=== PATIENT | female | born 1990 | race Two or more races ===

== ENCOUNTER 2023-04-02 19:33 | Emergency (ER) | payer OTHER, SELFPAY ==
[2023-04-02 19:43] VITALS: BP 119/70; PULSE 88; RESP 16; TEMP 37.2; O2SAT 99; BMI 31.4
--- NOTE | 2023-04-02 20:16 | MHC.EDTECH ---
Patient brought back to triage area,Labs,and a urine sample obtained and sent to lab.
[2023-04-02 20:27] LABS: Basophils Absolute Auto 0.1 X10*3/uL (0.0-0.2); Basophils Percent Auto 0.6 % (0-2); Eosinophils Absolute Auto 0.3 X10*3/uL (0.0-0.4); Eosinophils Percent Auto 2.4 % (0-4); Hematocrit 36.6 % (37.0-47.0); Hemoglobin 12.3 g/dl (12.0-16.0); Imm Gran Abs Auto 0.04 X10*3/uL (0.00-0.03); Imm Gran Pct Auto 0.3 % (0.0-0.4); Lymphocytes Absolute Auto 3.2 X10*3/uL (1.2-4.9); Lymphocytes Percent Auto 27.1 % (20-40); MANUAL DIFF FLAG NO; Mean Corpuscular HGB Conc 33.6 g/dl (31.0-35.0); Mean Corpuscular Hemoglobin 29.9 pg (27.0-33.0); Mean Corpuscular Volume 89.1 fL (80.0-98.0); Monocytes Absolute Auto 0.7 X10*3/uL (0.1-1.2); Monocytes Percent Auto 5.8 % (2-11); Neutrophils Absolute Auto 7.4 x10*3/uL (2.0-8.3); Neutrophils Percent Auto 63.8 % (45-73); Platelet Count 283 X10*3/uL (160-400); Red Blood Count 4.11 X10*6/uL (4.20-5.50); Red Cell Distribution Width 12.5 % (11.0-16.0); White Blood Count 11.6 X10*3/uL (4.8-10.8)
[2023-04-02 20:29] LABS: Appearance Urine Clear; Color Urine Yellow; Glucose Urine UA Negative (Negative); Leukocyte Esterase Urine Trace (Negative); Nitrite Urine Negative (Negative); PH 5.5 (5.0-9.0); Specific Gravity - Urine 1.025 (1.005-1.025); UMIC TRIGGER UACC YES; Urine Blood Negative (Negative); Urine Ketones Trace mg/dL (Negative); Urine Protein Negative (Neg-Trace)
[2023-04-02 20:30] VITALS: BP 121/80; PULSE 89; RESP 14; TEMP 36.8; O2SAT 99
[2023-04-02 20:31] LABS: Bacteria Urine 1+ (None Seen); Hyaline Casts Urine 0-2 /LPF (0-2); RBC Urine 0-2 /HPF (0-2); UPreg QC Valid YES; Urine Pregnancy NEGATIVE (NEGATIVE); WBC Urine 0-5 /HPF (0-5)
[2023-04-02 20:43] LABS: Alanine Aminotransferase 9 U/L (0-31); Albumin Level 4.4 g/dL (3.5-5.0); Alkaline Phosphatase 52 U/L (39-117); Anion Gap 14 (12-20); Aspartate Amino Transferase 12 U/L (5-31); Bilirubin Total 0.3 mg/dL (0.0-1.0); Blood Urea Nitrogen 11 mg/dL (9-16); Carbon Dioxide 25 mmol/L (22-29); Chloride 103 mmol/L (96-108); Creatinine Clr Calc Pharmacy 96.6; Estimated Glomerular Filt Rate > 60; Glucose Random 103 mg/dL (60-115); Potassium 3.9 mmol/L (3.3-5.1); Sodium 138 mmol/L (135-145); Total Protein 8.3 g/dL (6.5-8.0)
--- NOTE | 2023-04-02 21:31 | ED.FEMALEGU ---
HPI - Female Genitourinary General Chief complaint: Urogenital-Female Stated complaint: Flank pain/?UTI Time Seen by Provider: 04/02/23 21:05 History of Present Illness HPI Narrative: The patient presents complaining of ?kidney pain. ? She says that she has had this pain for a long time. She says that she was seen at [facility] Emergency room 3 weeks ago and was diagnosed with a UTI. She took a course of antibiotics but continues to have the same pain. On further questioning she admits to having the same pain for a long time. She says she has been diagnosed with fibromyalgia in the past. She is new in [place]. I believe she is from the [place]. She moved here last June. She has arranged for a primary care provider at [facility]. She says she has awaiting a referral to a molder punch. The patient says she has never had a kidney stone in her life. She also says that she has never had a kidney infection. Still why she calls her pain ?kidney pain she said that she thought that her pain is in the area of the kidneys. She denies any recent injury or exertional back pain injury. No loss of appetite. No fever, sweats, chills. She says that she is lost some weight over the last few months. When I asked if the patient takes anything for pain she said that she did not. However later she said that ibuprofen does not help for her pain. The patient has a regular sexual partner whom she has had for a long time. She does not seem to describe any significant dyspareunia. No vaginal discharge Related Data Allergies Allergy/AdvReac Type Severity Reaction Status Date / Time permethrin [PERMETHRIN] Allergy Severe generalized Verified 04/02/23 19:42 rash vancomycin [VANCOMYCIN] Allergy Intermediate itching Verified 04/02/23 19:42 Review of Systems Review of Systems: Yes all other systems are reviewed and are negative PMFSH Social History Social History Advance Directives: No Advance Directives Information Provided: No Physical Exam Vital Signs: Vital Signs: Last Vital Signs Temp 98.2 F 04/02/23 20:30 Pulse 89 04/02/23 20:30 Resp 14 04/02/23 20:30 BP 121/80 04/02/23 20:30 Pulse Ox 99 04/02/23 20:30 O2 Del Method Room Air 04/02/23 20:30 BMI result Body Mass Index 31.4 Const: Other: The patient is awake and alert. She looks well. She does not appear in distress. She does not seem toxic HEENT: Other: The face is symmetrical. ?Mucous membranes moist. Eyes: Other: Pupils are round equal, conjunctivae are clear, extraocular movements intact Resp: Effort & Inspection: normal respiratory effort Auscultation: clear to auscultation bilaterally Cardio: Rate: regular rate Rhythm: regular rhythm Heart sounds: S1 normal heart sound present and S2 normal heart sound present GI: Other: The abdomen is flat and soft. She reports some diffuse tenderness but without rebound or guarding Back/Spine/Pelvis: Other: The patient has bilateral CVA percussion tenderness. She also has bilateral paraspinous tenderness with standard palpation. Skin: Other: Skin is dry and unremarkable Neuro: Other: The patient is awake, alert, nontoxic appearing, normal mental status, grossly neurologically intact Extrem: Other: No peripheral edema Medical Decision Making Medical Decision Making MDM Narrative: The patient is a 32-year-old who says that she has been told she has fibromyalgia. She is here complaining of ?kidney pain? which is a bilateral pain. At 1st she seemed to imply that she has had this pain for 3 or 4 weeks. On further conversation it sounds as though she has seen providers in the past and that her pain has been ascribed to fibromyalgia. Clinically the patient looks quite well and she has unremarkable labs. Urinalysis is not suggestive of a UTI or kidney stone. The patient has a follow up appointment on Tuesday which is a follow up appointment for her [facility] emergency room visit. I have advised the patient that I think it is very unlikely that this pain represents an acute kidney problem or any other internal derangement. She may use ibuprofen and acetaminophen as needed. She should keep her follow-up appointment on Tuesday Lab Data 04/02/23 20:21 04/02/23 20:21 Labs: Lab Results 04/02/23 Range/Units 20:21 WBC 11.6 H (4.8-10.8) X10*3/uL RBC 4.11 L (4.20-5.50) X10*6/uL Hgb 12.3 (12.0-16.0) g/dl Hct 36.6 L (37.0-47.0) % MCV 89.1 (80.0-98.0) fL MCH 29.9 (27.0-33.0) pg MCHC 33.6 (31.0-35.0) g/dl RDW 12.5 (11.0-16.0) % Plt Count 283 (160-400) X10*3/uL MPV 11.0 (9.4-12.3) fL Immature Gran % (Auto) 0.3 (0.0-0.4) % Neut % (Auto) 63.8 (45-73) % Lymph % (Auto) 27.1 (20-40) % [place] % (Auto) 5.8 (2-11) % Eos % (Auto) 2.4 (0-4) % Baso % (Auto) 0.6 (0-2) % Lymph # (Auto) 3.2 (1.2-4.9) X10*3/uL [place] # (Auto) 0.7 (0.1-1.2) X10*3/uL Eos # (Auto) 0.3 (0.0-0.4) X10*3/uL Baso # (Auto) 0.1 (0.0-0.2) X10*3/uL Abs Immat Gran (auto) 0.04 H (0.00-0.03) X10*3/uL Absolute Neuts (auto) 7.4 (2.0-8.3) x10*3/uL Absolute Nucleated RBC 0.000 (0.0-0.012) X10*3/uL Nucleated RBC % (auto) 0.0 (0.0-0.2) /100WBC Sodium 138 (135-145) mmol/L Potassium 3.9 (3.3-5.1) mmol/L Chloride 103 (96-108) mmol/L Carbon Dioxide 25 (22-29) mmol/L Anion Gap 14 (12-20) BUN 11 (9-16) mg/dL Creatinine 0.80 (0.5-1.4) mg/dL Estim Creat Clear Calc 96.6 Estimated GFR > 60 Random Glucose 103 (60-115) mg/dL Calcium 10.0 (8.4-10.2) mg/dL Total Bilirubin 0.3 (0.0-1.0) mg/dL AST 12 (5-31) U/L ALT 9 (0-31) U/L Alkaline Phosphatase 52 (39-117) U/L C-Reactive Protein 0.39 (< or = 0.50) mg/dL Total Protein 8.3 H (6.5-8.0) g/dL Albumin 4.4 (3.5-5.0) g/dL Urine Color Yellow Urine Appearance Clear Urine pH 5.5 (5.0-9.0) Ur Specific [place] 1.025 (1.005-1.025) Urine Protein Negative (Neg-Trace) mg/dL Urine Glucose (UA) Negative (Negative) mg/dL Urine Ketones Trace (Negative) mg/dL Urine Blood Negative (Negative) Urine Nitrite Negative (Negative) Ur Leukocyte Esterase Trace H (Negative) Urine RBC 0-2 (0-2) /HPF Urine WBC 0-5 (0-5) /HPF Ur Squamous Epith Cells 3-5 (0-2) /HPF Urine Bacteria 1+ (None Seen) Hyaline Casts 0-2 (0-2) /LPF Urine Test NEGATIVE (NEGATIVE) Discharge Plan Discharge Clinical Impression: Back pain Patient Disposition: Home, Self-Care Additional Instructions: Your testing today is reassuring. There is no sign of urinary tract infection. I do not have a high suspicion for any acutely dangerous internal derangement. Your blood testing is very reassuring. Please keep your appointment on Tuesday. Return to the emergency room if worse Referrals: Umu Mcdonald. Sanjuana Galeas [Provider Group] (Back pain)
[2023-04-02 22:05] LABS: C Reactive Protein 0.39 mg/dL (< or = 0.50)
== END 2023-04-02 22:13 | disposition home or self-care (01) ==
PROVIDERS: Emergency Provider Emergency Medicine; PCP Physician Assistant
DX: R10.9 Unspecified abdominal pain (principal)
CPT/HCPCS: 36415; 80053; 81001; 81025; 85025; 86140; 99283; 99284